=== PATIENT | male | born 1970 | race Hispanic/Latino ===

== ENCOUNTER 2023-03-20 13:55 | Emergency (ER) | payer MEDICAID, OTHER ==
[~2023-03-20] VITALS: Ht 182.9 cm; Wt 82.6 kg
[2023-03-20 14:47] VITALS: BP 122/58; PULSE 102; RESP 16; O2SAT 99
[2023-03-20] MEDS ORDERED: BACITRACIN 1 EACH PACKET TP ONE (15:34)
[2023-03-20] MEDS ORDERED: CEPH500B PO (15:43)
[2023-03-20] MEDS ORDERED: CEPHALEXIN 500 MG CAPSULE PO ONE (16:00)
== END 2023-03-20 16:11 | disposition home or self-care (01) ==
LOC: EDH 13:55 → EDBD 13:55 → EDH 16:11
DX: L97.519 Non-pressure chronic ulcer of other part of right foot with unspecified severity (principal); E11.621 Type 2 diabetes mellitus with foot ulcer; E11.65 Type 2 diabetes mellitus with hyperglycemia